=== PATIENT | female | born 2000 | race Two or more races ===

== ENCOUNTER 2022-11-06 10:55 | Inpatient (IN) | payer OTHER ==
[2022-11-06] MEDS ORDERED: CITRIC ACID/SODIUM CITRATE 30 ML UNIT-DOSE CUP PO ONE (11:30)
[2022-11-06] MEDS ORDERED: ELECTROLYTE-148 SOLN 500 ML IV SCH ×2 (11:30→12:00)
[2022-11-06 12:36] VITALS: BMI 23.2
[2022-11-06 12:52] LABS: BASO % 0.5 % (0-2.0); EOS % 0.6 % (0-4.5); HEMATOCRIT 28.2 % (32.4-45.2); HEMOGLOBIN 9.5 GM/dL (10.7-15.3); LYMPH % 28.4 % (8-40); MCHC 33.7 g/dl (32.0-36.0); MEAN CELL VOLUME 92.2 fl (80-96); MEAN PLT VOLUME 8.4 fl (7.5-11.1); MONO % 7.7 % (3.8-10.2); NEUT % 62.8 % (42.8-82.8); PLATELET COUNT 201 10^3/uL (134-434); RBC 3.06 M/mm3 (3.60-5.2); RDW 13.8 % (11.6-15.6); WHITE BLOOD COUNT 7.2 K/mm3 (4.0-10.0)
[2022-11-06 12:59] LABS: PROTHROMBIN TIME (PATIENT) 11.6 SEC (9.7-13.0)
[2022-11-06 13:02] LABS: ACTIVATED PTT 26.9 SECONDS (25.2-36.5)
[2022-11-06 13:11] LABS: POTASSIUM 3.4 mmol/L (3.5-5.1)
[2022-11-06 13:13] LABS: CALCIUM 8.2 mg/dL (8.5-10.1)
[2022-11-06 13:16] LABS: CREATININE 0.7 mg/dL (0.55-1.3)
[2022-11-06 14:10] LABS: HIV INTERPRETATION NEGATIVE (NEGATIVE)
[2022-11-06] MEDS ORDERED: FENTANYL CITRATE/PF 50 MCG/ML VIAL ONE (15:30)
[2022-11-06] MEDS ORDERED: morphine SULFATE/PF 1 MG/2 ML (2cc Syringe - QUVA) ONE (15:30)
[2022-11-06] MEDS ORDERED: PHENYLEPHRINE HCL 10 MG/1 ML SINGLE DOSE VIAL ONE (15:37)
[2022-11-06] MEDS ORDERED: ePHEDrine SULFATE 50 MG/1 ML AMPULE ONE (15:38)
[2022-11-06] MEDS ORDERED: ceFAZolin SODIUM 1 GM VIAL ONE (15:39)
[2022-11-06 17:03] LABS: CORD BASE EXCESS -0.9 mmol/L (0-2); CORD HCO3 24.9 mmHg (20-29); CORD PCO2 45.7 mmHg (30-78); CORD pH 7.355 (7.14-7.44)
[2022-11-06 17:03] LABS: CORD BASE EXCESS -1.9 mmol/L (0-2); CORD HCO3 25.7 mmHg (20-29); CORD PCO2 55.1 mmHg (30-78); CORD pH 7.287 (7.14-7.44)
[2022-11-06] MEDS ORDERED: SENNOSIDES/DOCUSATE COMBO (SENNA PLUS) TABLET (UD) PO PRN (17:10)
[2022-11-06] MEDS ORDERED: SIMETHICONE 80 MG TAB.CHEW (FP) PO PRN (17:10)
[2022-11-06] MEDS ORDERED: ACETAMINOPHEN 1000 MG/100 ML BAG IVPB PRN (17:10)
[2022-11-06] MEDS ORDERED: oxyCODONE HCL 5 MG TABLET PO PRN (17:10)
[2022-11-06] MEDS ORDERED: ONDANSETRON 4 MG/2 ML VIAL IVPB PRN (17:10)
[2022-11-06] MEDS ORDERED: WITCH HAZEL 50% (TUCKS) 40 PAD/JAR PAD TP PRN (17:10)
[2022-11-06] MEDS ORDERED: ACETAMINOPHEN 325 MG TABLET (FP) PO PRN (17:10)
[2022-11-06] MEDS ORDERED: IBUPROFEN 600 MG TABLET (FP) PO PRN (17:10)
[2022-11-06] MEDS ORDERED: IBUPROFEN 800 MG/8 ML IJ IVPB PRN (17:10)
[2022-11-06] MEDS: OXYTOCIN 20 UNITS in 0.9% NS 20 UNIT/1,000 ML INFUS.BAG IV SCH (17:15)
[2022-11-06] MEDS ORDERED: ACETAMINOPHEN INJECTION 100 ML IVPB ONE (19:12)
[2022-11-06 21:31] VITALS: RESP 18
[2022-11-07] MEDS: OXYTOCIN 20 UNITS in 0.9% NS 20 UNIT/1,000 ML INFUS.BAG IV SCH ×2 (02:06→19:36)
[2022-11-07] MEDS: PRENATAL VITAMINS W/ FOLIC ACID TABLET (FP) PO SCH (10:06)
[2022-11-07 10:43] LABS: BASO % 0.1 % (0-2.0); EOS % 0.1 % (0-4.5); HEMATOCRIT 28.2 % (32.4-45.2); HEMOGLOBIN 9.4 GM/dL (10.7-15.3); MCH 30.5 pg (25.7-33.7); MCHC 33.1 g/dl (32.0-36.0); MEAN PLT VOLUME 8.7 fl (7.5-11.1); MONO % 7.2 % (3.8-10.2); NEUT % 74.6 % (42.8-82.8); PLATELET COUNT 189 10^3/uL (134-434); RBC 3.07 M/mm3 (3.60-5.2); RDW 13.8 % (11.6-15.6); WHITE BLOOD COUNT 11.9 K/mm3 (4.0-10.0)
[2022-11-07] MEDS: FERROUS SO4 325 MG TABLET (FP) PO SCH ×2 (15:47→22:23)
[2022-11-07] MEDS ORDERED: BISACODYL 10 MG SUPP.RECT RC PRN (17:11)
[2022-11-08] MEDS: FERROUS SO4 325 MG TABLET (FP) PO SCH (10:09)
[2022-11-08] MEDS: PRENATAL VITAMINS W/ FOLIC ACID TABLET (FP) PO SCH (10:09)
[2022-11-08 12:22] VITALS: BP 120/70; PULSE 98; TEMP 99.1
== END 2022-11-08 15:15 | disposition home or self-care (01) | DRG 540 ==
LOC: JLDR 10:55 → J3W 20:30
PROVIDERS: ADMIT Family Medicine; ATTEND Family Medicine
PROC: 10D00Z1 Extraction of Products of Conception, Low, Open Approach (ICD-10-PCS; principal; 2022-11-06)
DX: O34.211 Maternal care for low transverse scar from previous cesarean delivery (principal); Z3A.39 39 weeks gestation of pregnancy; Z37.0 Single live birth
CPT/HCPCS: 36415; 36600; 80048; 82803; 85025; 85610; 85730; 86780; 86850; 86900; 86901; 87340; 87389; 88307-TC